=== PATIENT | female | born 1930 | race Caucasian/White ===

== ENCOUNTER 2016-08-03 10:47 | Emergency (ER) | payer OTHER, MEDICARE ==
[~2016-08-03] VITALS: Ht 162.6 cm; Wt 59.0 kg
[~2016-08-03 10:47] MED LIST: ASPIR LOW81 MG PO; BENICAR HCT 12.1 TA2 PO; HYGROTON 25MG T25 MG PO; K-DUR 20MEQ TA20 MEQ PO; MEDROL DOSEPAK1 PAC PO; MOTRIN 400MG (400 MG PO; POTASSIUM CHLO20 MEQ PO; PRAVASTATIN SOD80 MG PO; PRILOSEC 20MG C20 MG PO
--- NOTE | 2016-08-03 11:07 | ED SKIN/ALLERGY COMPLAINT ---
History of Present Illness General Chief Complaint: General Adult Stated Complaint: SWOLLEN TONGUE Source: patient Exam Limitations: no limitations Vital Signs & Intake/Output Vital Signs & Intake/Output Vital Signs Date Time Temp Pulse Resp B/P B/P Pulse O2 O2 Flow FiO2 Mean Ox Delivery Rate 08/03 1339 16 98 Room Air 08/03 1336 96.8 76 18 149/70 94 Room Air 08/03 1203 74 18 98 Room Air 08/03 1155 98 Room Air 08/03 1050 97.7 80 20 178/84 96 Room Air Allergies Coded Allergies: amlodipine (Severe, ANGIODEMA 08/03/16) galantamine (Mild, ?GULANTAMINE - "HAD PROBLEMS" 08/03/16) lansoprazole (From PREVACID) (Mild, "MOUTH BURNING" 08/03/16) NICOLE Inhibitors (UNKNOWN 08/03/16) cefdinir (Mild, "AFFECTED STOMACH" 08/03/16) chlorthalidone (Mild, NAUSEA 08/03/16) meclizine (From ANTIVERT) (Mild, "DIZZINESS/NAUSEA" 08/03/16) naproxen (From NAPROSYN) (Mild, "STOMACH SORENESS" 08/03/16) potassium chloride (From KLOR-CON) (Mild, NAUSEA 08/03/16) acetaminophen (From PERCOCET) (DIZZINESS AND NAUSEA 08/03/16) guaifenesin ("TROUBLE SLEEPING" 08/03/16) lorazepam (FORGETFUL 08/03/16) metoclopramide (From REGLAN) (STOMACH CRAMPS 08/03/16) oxycodone (From PERCOCET) (DIZZINESS AND NAUSEA 08/03/16) pseudoephedrine ("TROUBLE SLEEPING" 08/03/16) Reconcile Medications Aspirin (Aspirin EC) 81 MG TABLET.DR 1 TAB PO DAILY . (Reported) Diphenhydramine HCl (Benadryl) 25 MG CAPSULE 1 CAP PO TID PRN ALLERGIC REACTION Epinephrine (Epipen 2-Vinnie) 0.3 MG/0.3 ML AUTO.INJCT 1 INJ IM ONCE PRN ANAPHYLAXIS Famotidine (Pepcid) 20 MG TABLET 1 TAB PO DAILY ALLERGIC REACTION Ibuprofen 400 MG TABLET 400 MG PO Q6 PRN Knee pain Omeprazole (Prilosec) 20 MG CAPSULE.DR 1 TAB PO DAILY . (Reported) POTASSIUM CHLORIDE (K-Dur) 20 MEQ TAB.ER.PRT 1 TAB PO DAILY SUPPLEMENT Pravastatin Sodium 80 MG TABLET 1 TAB PO DAILY . (Reported) Prednisone 10 MG TABLET 1 TAB PO BID ALLERGIC REACTION Triage Note: PT TO ED WITH DAUGTHER C/O TONGUE SWELLING. 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 DENIES ANY NEW FOOD OR MEDS. RA SATS 98%. PT IN NO OBVIOUS RESP DISTRESS. ABLE TO SWALLOW. STATES SHE FEELS LIKE HER THROAT IS CLOSING UP. PT APPERS ANXIOUS, TEARING UP IN TIRAGE. PT TAKEN TO ROOM 18 VIA W/C, ASSISTED TO STRETCHER. KAREN SCHMDIT IN FOR EVAL. RA SATS REMAIN 98%. Triage Nurses Notes Reviewed? yes Onset: Abrupt Duration: getting worse Timing: single episode today Severity: severe Severity Numbers: 7 Possible Factors: no cause identified HPI: Patient is an 85-year-old female with a past medical history of GERD, hyperlipidemia osteoarthritis hypertension who states that she woke up in her normal state of health today at 8 AM she ate her normal breakfast which included Moldovan muffin banana and at 9:30 she had Tylenol for her arthritis and 10:30, 30 minutes prior to arrival she had her normal dosing of Roxanne for concerns of seasonal allergies AND A BAGEL WITH PEANUT BUTTER states that 5 minutes prior to arrival she had acute onset of left-sided tongue swelling that is making it difficult for patient to speak. She denies any fevers chills difficulty swallowing difficulty breathing trismus headache facial droop facial paresthesia extremity paresthesia or weakness cough shortness of breath. Patient denies any etiology of allergic reaction. (RODO JONES,SHIVA) Past History Travel History Traveled to [place] past 21 day No Medical History Any Pertinent Medical History? 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 BROTHER FATHER FATHER MOTHER Relation not specified for: Cancer Diabetes mellitus in mother Hypertension in father Hx Contributory? No (SHIVA BARNES) Review of Systems Review of Systems Constitutional: Reports: no symptoms. EENTM: Reports: see HPI. Denies: throat pain, throat swelling. Respiratory: Reports: no symptoms. Cardiovascular: Reports: no symptoms. GI: Reports: no symptoms. Genitourinary: Reports: no symptoms. Musculoskeletal: Reports: no symptoms. Skin: Reports: no symptoms. Neurological/Psychological: Reports: no symptoms. Hematologic/Endocrine: Reports: no symptoms. Immunologic/Allergic: Reports: no symptoms. All Other Systems: Reviewed and Negative (SHIVA BARNES) Physical Exam Physical Exam General Appearance: anxious Comments: HEENT: extraocular motion intact, no nystagmus. Pupils equally round and reactive to light and accommodation. Nose is atraumatic. External auditory canal and Tympanic membranes clear. Pharynx normal. No swelling or edema. Mouth- noted left-sided mild tongue swelling No pharyngeal swelling no tonsillar swelling no trismus Neck: Supple, no lymphadenopathy, normal range of motion without pain or tenderness Back: Nontender, no CVA tenderness. Cardiovascular: Regular rate and rhythms no murmurs rubs or gallops, normal JVP Respiratory: Chest nontender. No respiratory distress.breath sounds clear to auscultation bilaterally Abdomen: Soft, nontender nondistended, no appreciable organomegaly. Normal bowel sounds. No ascites Extremity: No edema, no calf tenderness to palpation, normal and equal pulses. Neuro: Alert oriented x3, motor sensory normal, cranial nerves II through XII grossly intact. Skin: No appreciable rash on exposed skin, skin is warm and dry. Psych: Mood and affect is normal, memory and judgment is normal. (SHIVA BARNES) Progress Differential Diagnosis: abscess/cellulitis, allergic reaction, anaphylaxis, angioedema, contact dermatitis, drug reaction, erythema multiforme, urticaria, CVA, TIA, RICKETTS'S PALSY, ANAPHYLAXIS ANGIOEDEMA Plan of Care: Orders Procedure Date/time Status Regular Diet 08/03 D Active Current Medications Sig/Nelly Start time Last Medication Dose Stop Time Status Admin Famotidine 20 MG ONCE ONE 08/03 1115 CAN (Pepcid) 08/03 1116 On examination patient's only physical exam finding is noted of left-sided tongue swelling Patient was neurovascularly intact cranial nerves intact no concerns of TIA stroke or Ricketts's palsy 08/03/2016 12:20:46 PM-reevaluation the patient patient states that she feels better on examination the tongue swelling has significantly improved. Patient is talking in full sentences no slurred speech patient Patient resting comfortably on her bed in no apparent distress 08/03/2016 1:13:27 PM patient resting comfortably at bedside eating a meal and having no difficulty swallowing on reexamination patient had complete resolution of swelling Due to history of present illness and exam findings there is suspicion of a peanut allergy as patient did ingest this 30 minutes prior to onset of symptoms. Discussed disposition plan with Dr. Keene who agrees. Upon discharge patient looks off no apparent distress and has complete resolution of swelling of tongue. No stridor noted no anaphylaxis noted. I strongly instructed patient to only use epinephrine for emergent anaphylaxis. Family also agrees with disposition plan (SHIVA BARNES) Departure Departure Disposition: HOME OR SELF CARE Condition: Stable Clinical Impression Primary Impression: Tongue swelling Secondary Impressions: Food allergy, peanut Referrals: JANNETTE BOURGEOIS,KAYLEE Mitchell Additional Instructions: As discussed follow-up with YOUR primary care doctor tomorrow for further evaluation treatment and possible allergy testing. Please avoid peanut butter as this may cause your symptoms to worsen. Continue home medications as directed. Begin the prescription of prednisone, Pepcid tomorrow for your symptoms and continue Benadryl as directed for your symptoms. Begin the prescription of epinephrine pen only for emergent anaphylaxis symptoms. If symptoms worsen return to emergency room. Prescriptions waiting at [facility] pharmacy. Departure Forms: Customer Survey General Discharge Information Prescriptions: Current Visit Scripts Epinephrine (Epipen 2-Vinnie) 1 INJ IM ONCE PRN ANAPHYLAXIS #1 BOX Prednisone 1 TAB PO BID #8 TAB Diphenhydramine HCl (Benadryl) 1 CAP PO TID PRN ALLERGIC REACTION #12 CAP Famotidine (Pepcid) 1 TAB PO DAILY #4 TAB (SHIVA BARNES) PA/SCHOOL COUNSELLOR Co-Sign Statement Statement: ED Attending supervision documentation- [X] I saw and evaluated the patient. I have also reviewed all the pertinent lab results and diagnostic results. I agree with the findings and the plan of care as documented in the PA's/SCHOOL COUNSELLOR's documentation. [X] I have reviewed the ED Record and agree with the PA's/SCHOOL COUNSELLOR's documentation. [] Additions or exceptions (if any) to the PAs/SCHOOL COUNSELLOR's note and plan are summarized below: [] (GRIS BOURGEOIS,ADAIR Alatorre)
[2016-08-03 13:36] VITALS: BP 149/70
[2016-08-03] MEDS ORDERED: BENADRYL25 MG PO (13:38)
[2016-08-03] MEDS ORDERED: PEPCID20 M1 PO (13:38)
[2016-08-03] MEDS ORDERED: EPIPEN 2-P0.3 MG/0.3 IM (13:38)
[2016-08-03] MEDS ORDERED: PREDNISONE10 M2 PO (13:38)
== END 2016-08-03 13:54 ==
LOC: ERH 10:47
DX: T78.1XXA Other adverse food reactions, not elsewhere classified, initial encounter (principal); R22.0 Localized swelling, mass and lump, head
CPT/HCPCS: 96374; 96375; J1200; J2930

== ENCOUNTER 2016-08-27 05:54 | Emergency (ER) | payer OTHER, MEDICARE ==
[~2016-08-27] VITALS: Ht 162.6 cm; Wt 57.2 kg
[~2016-08-27 05:54] MED LIST changes: +BENADRYL25 MG PO; +EPIPEN 2-P0.3 MG/0.3 IM; +PEPCID20 M1 PO; +PREDNISONE10 M2 PO
--- NOTE | 2016-08-27 06:37 | ED CARDIAC/CP/PALPITATIONS ---
History of Present Illness General Chief Complaint: Chest Pain Stated Complaint: CHEST HEAVINESS IN CHEST Source: patient Exam Limitations: poor historian Vital Signs & Intake/Output Vital Signs & Intake/Output Vital Signs Date Time Temp Pulse Resp B/P B/P Pulse O2 O2 Flow FiO2 Mean Ox Delivery Rate 08/27 0826 95.2 68 20 146/70 96 Room Air 08/27 0701 109/58 08/27 0614 97.0 71 18 155/73 99 Room Air Allergies Coded Allergies: amlodipine (Severe, ANGIODEMA 08/03/16) galantamine (Mild, ?GULANTAMINE - "HAD PROBLEMS" 08/03/16) lansoprazole (From PREVACID) (Mild, "MOUTH BURNING" 08/03/16) NICOLE Inhibitors (UNKNOWN 08/03/16) cefdinir (Mild, "AFFECTED STOMACH" 08/03/16) chlorthalidone (Mild, NAUSEA 08/03/16) meclizine (From ANTIVERT) (Mild, "DIZZINESS/NAUSEA" 08/03/16) naproxen (From NAPROSYN) (Mild, "STOMACH SORENESS" 08/03/16) potassium chloride (From KLOR-CON) (Mild, NAUSEA 08/03/16) acetaminophen (From PERCOCET) (DIZZINESS AND NAUSEA 08/03/16) guaifenesin ("TROUBLE SLEEPING" 08/03/16) lorazepam (FORGETFUL 08/03/16) metoclopramide (From REGLAN) (STOMACH CRAMPS 08/03/16) oxycodone (From PERCOCET) (DIZZINESS AND NAUSEA 08/03/16) pseudoephedrine ("TROUBLE SLEEPING" 08/03/16) Triage Note: PT TO ED C/O SUDDEN ONSET OF PRESSSURE IN THE THROAT THAT RADIATES TO CHEST THAT BEGAN 1 HOUR AGO. PT DENIES SOB, DIZZINESS, N/V/D, FEVER AND CHILLS. Triage Nurses Notes Reviewed? yes HPI: Patient presents for evaluation of a constant heavy or pressure feeling in the chest that goes up into the throat. The discomfort began about 4 AM with an associated belching. Patient denies a burning sensation or left arm pain. She states it feels worse when she lies down. She cannot recall having any prior episodes of this type of pain. There has been no associated diaphoresis dyspnea or palpitations. No medications have been tried. The patient's pain is currently a 4 out of 10. (GLENN BOURGEOIS,VENITA Cool) Reconcile Medications Amlodipine Besylate 2.5 MG TABLET 1 TAB PO DAILY HIGH BLOOD PRESSURE ( Reported) Anastrozole 1 MG TABLET 1 TAB PO DAILY SUPPLEMENT (Reported) Aspirin (Aspirin EC) 81 MG TABLET.DR 1 TAB PO DAILY . (Reported) Aspirin (Aspirin*) 81 MG TAB.CHEW 1 TAB PO DAILY HEART HEALTH (Reported) Calcium Carbonate/Vitamin D3 (Caltrate 600 + D Tablet) 600 MG-800 TABLET 1 TAB PO DAILY SUPPLEMENT (Reported) Cholecalciferol (Vitamin D3) (Vitamin D3) 1,000 UNIT CAPSULE 1 CAP PO DAILY SUPPLEMENT (Reported) Dicyclomine HCl 10 MG CAPSULE 10 MG PO PRN SUPPLEMENT (Reported) Diphenhydramine HCl (Benadryl) 25 MG CAPSULE 1 CAP PO TID PRN ALLERGIC REACTION Epinephrine (Epipen 2-Vinnie) 0.3 MG/0.3 ML AUTO.INJCT 1 INJ IM ONCE PRN ANAPHYLAXIS Famotidine (Pepcid) 20 MG TABLET 1 TAB PO DAILY ALLERGIC REACTION Ibuprofen 400 MG TABLET 400 MG PO Q6 PRN Knee pain Multivit-Min/FA/Lycopen/Lutein (Centrum Silver Tablet) (Unknown Strength) TABLET (Unknown Dose) PO DAILY SUPPLEMENT (Reported) Omeprazole (Prilosec) 20 MG CAPSULE.DR 1 TAB PO DAILY . (Reported) Omeprazole 20 MG CAPSULE.DR 1 CAP PO DAILY ACID REFLUX (Reported) POTASSIUM CHLORIDE (K-Dur) 20 MEQ TAB.ER.PRT 1 TAB PO DAILY SUPPLEMENT Pravastatin Sodium 80 MG TABLET 1 TAB PO DAILY . (Reported) Pravastatin Sodium 80 MG TABLET 1 TAB PO DAILY HEART HEALTH (Reported) Prednisone 10 MG TABLET 1 TAB PO BID ALLERGIC REACTION (PEDRO YARBROUGH MD) Past History Travel History Traveled to [place] past 21 day No Medical History Any Pertinent Medical History? 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 BROTHER FATHER FATHER MOTHER Relation not specified for: Cancer Diabetes mellitus in mother Hypertension in father Hx Contributory? No (VENITA ELIZABETH MD) Review of Systems Review of Systems Constitutional: Reports: no symptoms. EENTM: Reports: no symptoms. Respiratory: Reports: no symptoms. Cardiovascular: Reports: see HPI. GI: Reports: no symptoms. Genitourinary: Reports: no symptoms. Musculoskeletal: Reports: no symptoms. Skin: Reports: no symptoms. Neurological/Psychological: Reports: no symptoms. Hematologic/Endocrine: Reports: no symptoms. Immunologic/Allergic: Reports: no symptoms. All Other Systems: Reviewed and Negative (VENITA ELIZABETH MD) Physical Exam Physical Exam Cardiovascular: see below Comments: Gen.: Well-nourished, well-developed, no acute respiratory distress. Head: Normocephalic, atraumatic. Eyes: Normal inspection bilaterally Ears: Normal inspection bilaterally Nose: Normal inspection Throat/mouth : Moist mucosa Neck: Supple, full range of motion, no goiter Heart: Regular rate and rhythm, systolic murmur throughout the precordium 1-2+. Lungs: Clear to auscultation bilaterally with normal air entry Chest: Nontender Back: Normal range of motion Abdomen: Soft, nontender, nondistended, normal bowel sounds Extremities: Normal range of motion grossly, equal radial pulses, no cyanosis clubbing or edema, calves nontender Neurologic: Cranial nerves grossly intact, speech is clear Skin: warm and dry Psychiatric: Calm, cooperative, no apparent delusions or hallucinations Core Measures ACS in differential dx? Yes Severe Sepsis Present: No Septic Shock Present: No (VENTIA ELIZABETH MD) Progress Differential Diagnosis: AMI, pericarditis, pneumonia, unstable angina Plan of Care: Orders Procedure Date/time Status Consistent Carbohydrate 2 08/27 L Active TROPONIN LEVEL 08/27 1000 Complete Telemetry/[employer] 08/27 06 Active TROPONIN LEVEL 08/27 0636 Complete MAGNESIUM 08/27 0636 Complete CBC WITHOUT DIFFERENTIAL 08/27 0636 Complete BASIC METABOLIC PANEL 08/27 0636 Complete EKG 08/27 0555 Active Laboratory Tests 08/27/16 0949: Troponin I < 0.01 08/27/16 0650: Anion Gap 12, Estimated GFR > 60, BUN/Creatinine Ratio 20.0, Glucose 106 H, Calcium 9.9, Magnesium 1.7, Troponin I < 0.01, CBC w Diff NO MAN DIFF REQ, RBC 4.81, MCV 88.4, MCH 30.6, RDW 13.6, MPV 10.2, Gran % 61.0, Lymphocytes % 23.9, Monocytes % 10.5 H, Eosinophils % 3.3, Basophils % 1.3, Absolute Granulocytes 2.7, Absolute Lymphocytes 1.1 L, Absolute Monocytes 0.5, Absolute Eosinophils 0.1, Absolute Basophils 0.1, PUBS MCHC 34.6 Initial ED EKG: NSR, rate (75), no ST T wave changes Prior EKG: unchanged Rhythm Strip: normal sinus rhythm Comments: 08/27/16 07:15 pt signed out to dr yarbrough. (GLENN BOURGEOIS,VENITA Cool) Comments: Patient and family updated with diagnostics. Chest pressure radiating to neck currently absent. They report distant history of stress exercise testing that was negative. Troponin and EKG to be repeated. (PEDRO YARBROUGH MD) Departure Departure Condition: Stable Clinical Impression Primary Impression: Chest pain Referrals: TAMIKA AMAYA MD (PCP/Family) Departure Forms: Customer Survey General Discharge Information (GLENN BOURGEOIS,VENITA Cool) Departure Time of Disposition: 1050 Disposition: HOME OR SELF CARE (PEDRO YARBROUGH MD) Critical Care Note Critical Care Note Critical Care Time: non-applicable (VENITA ELIZABETH MD)
[2016-08-27 06:58] LABS: ABSOLUTE BASOPHIL COUNT 0.1 /CUMM (0.0-0.2); ABSOLUTE EOSINOPHIL COUNT 0.1 /CUMM (0.0-0.7); ABSOLUTE GRANULOCYTE CT 2.7 /CUMM (1.4-6.5); ABSOLUTE LYMPH COUNT 1.1 /CUMM (1.2-3.4); ABSOLUTE MONOCYTE COUNT 0.5 /CUMM (0.10-0.60); BASOPHIL % 1.3 % (0.0-2.0); EOSINOPHIL % 3.3 % (0-5); HEMATOCRIT 42.5 % (37-47); MEAN CORPUSCULAR HGB 30.6 PG (27.0-31.0); MEAN CORPUSCULAR HGB CONC 34.6 G/DL (33.0-37.0); MEAN CORPUSCULAR VOLUME 88.4 FL (81.0-99.0); MEAN PLATELET VOLUME 10.2 FL (7.4-10.4); PLATELET COUNT 185 /CUMM (130-400); RBC DISTRIBUTION WIDTH 13.6 % (11.5-14.5); RED BLOOD CELL CT 4.81 /CUMM (4.20-5.40); WHITE BLOOD CELL COUNT 4.4 /CUMM (4.8-10.8)
[2016-08-27] MEDS ORDERED: OMEPRAZOLE20 M2 PO (07:28)
[2016-08-27] MEDS ORDERED: PRAVASTATIN SOD80 M2 PO (07:29)
[2016-08-27] MEDS ORDERED: AMLODIPINE BES2.5 M1 PO (07:30)
[2016-08-27] MEDS ORDERED: VITAMIN D31000 UNI1 PO (07:33)
[2016-08-27] MEDS ORDERED: DICYCLOMINE HCL10 M1 PO (07:35)
[2016-08-27] MEDS ORDERED: ASPIRIN81 M4 PO (07:36)
[2016-08-27] MEDS ORDERED: CENTRUM SILVER1 EAC3 PO (07:38)
[2016-08-27] MEDS ORDERED: CALTRATE 600 +1 EACH PO (07:38)
--- NOTE | 2016-08-27 07:38 | RADIOLOGY REPORT ---
EXAMINATION: XR PORTABLE CHEST CLINICAL INFORMATION: Chest tightness COMPARISON: 10/11/2014 TECHNIQUE: Portable frontal view of the chest was obtained. FINDINGS: The lungs are clear with no focal consolidation. There is relative lucency in the upper lungs, which could reflect underlying emphysema. No evidence of pneumothorax, pulmonary edema, or pleural effusions. Cardiac size is within normal limits. Calcification is present at the aortic arch. No acute osseous findings are seen. IMPRESSION: No acute cardiopulmonary findings. Possible underlying emphysema.
[2016-08-27] MEDS ORDERED: ANASTROZOLE1 M1 PO (07:39)
[2016-08-27 08:26] VITALS: BP 146/70
== END 2016-08-27 11:00 ==
LOC: ERH 05:54
PROVIDERS: Emergency Medicine
DX: R07.9 Chest pain, unspecified (principal)
CPT/HCPCS: 93005; 93010; J3490